=== PATIENT | male | born 1940 | race Caucasian/White ===

== ENCOUNTER 2019-01-04 05:59 | Day surgery (SDC) | payer OTHER ==
[~2019-01-04] VITALS: Ht 188 cm; Wt 129.0 kg
[~2019-01-04 05:59] MED LIST: AMLO5; ASPI81CH; Amaryl4 MG; CHOL10002; ESCI20; Lipitor20 MG; METF500; SITA100T2
--- NOTE | 2019-01-04 06:50 | NUR ---
DR MARCIAL IN ROOM, DISCUSSING PLAN OF CARE WITH PT AND FAMILY.
--- NOTE | 2019-01-04 10:39 | NUR ---
PT TO ROOM VIA W/C POST PROCEDURE. HAS HAS X-RAYS PERFORMED PER ORDERS. PT DENIES ANY PAIN OR DISCOMFORT. FAMILY AT BEDSIDE.
--- NOTE | 2019-01-04 14:47 | NUR ---
DISCHARGE PT A&OX3 AND DENIES ANY PAIN AT THIS TIME. IV DC'S WITH TIP IN TACT. PT ABLE TO DRESS SELF WITH LITTLE ASSISTANCE. L UPPER CHEST SITE REMAINS CDI-NO HEMATOMA NOTED-PRESSURE DRESSING REMIANS IN PLACE FOR DR. DOCKERY TO REMOVE IN THE AM-PT HAS SCHEDULED APPOINTMENT. DISCHARGE PAPERWORK GONE OVER WITH PT AND FRIEND. PT AND FRIEND VERBALLY STATED THE UNDERSTANDING AND DENIED ANY QUESTIONS ABOUT THE DISCHARGE EDCUATION. PT WHEELED OUT BY ESCORT WITH BELONGINGS.
== END 2019-01-04 22:41 | disposition home or self-care (01) ==
LOC: MHTC 05:59
DX: I45.2 Bifascicular block (principal); I44.1 Atrioventricular block, second degree; I35.0 Nonrheumatic aortic (valve) stenosis; I10 Essential (primary) hypertension; E78.5 Hyperlipidemia, unspecified; E11.9 Type 2 diabetes mellitus without complications; G47.33 Obstructive sleep apnea (adult) (pediatric); E66.9 Obesity, unspecified; Z99.89 Dependence on other enabling machines and devices
CPT/HCPCS: 33208; 71046; 82947; 93005; 93010; 99152; 99153; C1785; C1898; J0690; J1644; J2250; J3010; J7030; J7040

== ENCOUNTER 2019-11-15 08:00 | Day surgery (SDC) | payer OTHER ==
[~2019-11-15] VITALS: Ht 188 cm; Wt 137.1 kg
[~2019-11-15 08:00] MED LIST changes: +AMLO5 PO; +ATORVASTATIN CA10 MG PO; +Benicar Hct 401 EAC1 PO; +ESCI10 PO; +Glimepiride4 MG PO; +Glucophage1000 MG PO; +VITAMIN D-32000 UNIT PO
== END 2019-11-15 10:31 | disposition home or self-care (01) ==
LOC: ORSCSDS 08:00
PROVIDERS: Ophthalmology
PROC: 08RK3JZ Replacement of Left Lens with Synthetic Substitute, Percutaneous Approach (ICD-10-PCS; principal; 2019-11-15 09:30)
DX: H25.12 Age-related nuclear cataract, left eye (principal); I10 Essential (primary) hypertension; G47.33 Obstructive sleep apnea (adult) (pediatric); E11.9 Type 2 diabetes mellitus without complications; Z95.0 Presence of cardiac pacemaker; E66.01 Morbid (severe) obesity due to excess calories; Z68.38 Body mass index [BMI] 38.0-38.9, adult; Z79.899 Other long term (current) drug therapy; Z79.82 Long term (current) use of aspirin; Z79.84 Long term (current) use of oral hypoglycemic drugs
CPT/HCPCS: 82947; J2001; J2250; J3010; J3301; J7040; V2632

== ENCOUNTER → 2020-04-15 | Outpatient (CLI) | payer OTHER ==
[2020-04-17 21:49] LABS: CORONAVIRUS (COVID19) CSH-NRL Negative (Negative)
== END | disposition home or self-care (01) ==
LOC: LAB SHORT 13:58
PROVIDERS: Family Medicine
DX: J06.9 Acute upper respiratory infection, unspecified (principal); Z20.828 Contact with and (suspected) exposure to other viral communicable diseases
CPT/HCPCS: U0003

== ENCOUNTER → 2020-04-23 | Outpatient (CLI) | payer OTHER | END | disposition home or self-care (01) | LOC: LAB SHORT 08:04 → PLD 08:04 | DX: B35.1 Tinea unguium (principal) | CPT/HCPCS: 88305; 88312 ==

== ENCOUNTER → 2020-08-01 | Outpatient (CLI) | payer OTHER ==
[2020-08-03 15:38] LABS: CORONAVIRUS (COVID19) CSH-NRL Negative (Negative)
== END | disposition home or self-care (01) ==
LOC: PLD 09:35 → LAB SHORT 09:35
PROVIDERS: Family Medicine
DX: Z01.812 Encounter for preprocedural laboratory examination (principal); Z20.822 Contact with and (suspected) exposure to COVID-19
CPT/HCPCS: U0003

== ENCOUNTER → 2022-05-27 | Outpatient (CLI) | payer OTHER | END | disposition home or self-care (01) | LOC: LAB SHORT 14:52 | DX: L70.0 Acne vulgaris (principal); L08.9 Local infection of the skin and subcutaneous tissue, unspecified | CPT/HCPCS: 88305 ==

== ENCOUNTER → 2023-07-27 | Outpatient (CLI) | payer OTHER ==
[2023-07-27 09:16] LABS: BASOPHILS ABSOLUTE AUTO 0.03 K/mm3 (0.00-0.23); BASOPHILS PERCENT AUTO 0 % (0-2); EOSINOPHILS ABSOLUTE AUTO 0.08 K/mm3 (0.00-0.68); EOSINOPHILS PERCENT AUTO 1 % (0-6); Hematocrit 39.7 % (37.0-53.0); Hemoglobin 12.6 g/dL (13.5-17.5); IMMATURE GRAN ABSOLUTE AUTO 0.03 K/mm3 (0.00-0.10); IMMATURE GRAN PERCENT AUTO 0 % (0-1); LYMPHOCYTES ABSOLUTE AUTO 1.04 K/mm3 (0.84-5.20); LYMPHOCYTES PERCENT AUTO 15 % (21-46); MONOCYTES ABSOLUTE AUTO 0.36 K/mm3 (0.16-1.47); MONOCYTES PERCENT AUTO 5 % (4-13); Mean Corpuscular HGB 29.5 pg (26.0-34.0); Mean Corpuscular HGB Conc 31.7 g/dL (31.5-36.5); Mean Corpuscular Volume 93 fL (80-100); Mean Platelet Volume 11.1 fL (9.1-12.4); NEUTROPHILS ABSOLUTE AUTO 5.58 K/mm3 (1.96-9.15); NEUTROPHILS PERCENT AUTO 78 % (41-73); Platelet Count 162 K/mm3 (150-400); RDW Coefficient Variation 13.9 % (11.7-14.2); RDW Standard Deviation 47.2 fL (35.1-46.3); Red Blood Cell Count 4.27 M/mm3 (4.30-5.90); White Blood Cell Count 7.12 K/mm3 (4.00-11.30)
[2023-07-27 09:22] LABS: Albumin/Globulin Ratio 1.1 (0.8-1.8); Bilirubin, Total 0.7 mg/dL (0.1-1.0); Bun/Creatinine Ratio 19.3 (12.0-20.0); Calcium, Blood 9.7 mg/dL (8.5-10.1); Creatinine, Blood 1.4 mg/dL (0.60-1.20); Globulin, Blood 3.7 g/dL (2.2-4.0); Potassium, Blood 3.9 mmol/L (3.5-5.5); Total Protein, Blood 7.7 g/dL (6.4-8.2)
== END | disposition home or self-care (01) ==
LOC: LAB 09:03 → LAB SHORT 09:03
PROVIDERS: Physician Assistant Medical
DX: N20.1 Calculus of ureter (principal); R10.32 Left lower quadrant pain
CPT/HCPCS: 80053; 85025; 87086

== ENCOUNTER → 2024-04-10 | Outpatient (CLI) | payer OTHER | LOC: LAB SHORT 09:30 → LAB 09:30 | DX: L60.2 Onychogryphosis (principal); B35.1 Tinea unguium; B35.3 Tinea pedis | CPT/HCPCS: 87102; 87106; 87220 ==

== ENCOUNTER → 2024-10-02 | Outpatient (CLI) | payer OTHER | END | disposition home or self-care (01) | LOC: LAB 17:38 → LAB SHORT 17:38 | DX: E11.42 Type 2 diabetes mellitus with diabetic polyneuropathy (principal); L60.2 Onychogryphosis; B35.1 Tinea unguium; B35.3 Tinea pedis; L84 Corns and callosities | CPT/HCPCS: 87210 ==

== ENCOUNTER 2025-05-14 21:09 | Emergency (ER) | payer OTHER ==
[~2025-05-14] VITALS: Ht 188 cm; Wt 117.9 kg
[2025-05-14 21:13] VITALS: BP 133/74
== END 2025-05-14 21:40 | disposition home or self-care (01) ==
LOC: ER 21:09
DX: Z76.89 Persons encountering health services in other specified circumstances (principal)
CPT/HCPCS: 82947; 99283